=== PATIENT | female | born 2000 | race Caucasian/White ===

== ENCOUNTER 2022-04-26 23:36 | Emergency (ER) | payer BC ==
[~2022-04-26] VITALS: Ht 165.1 cm; Wt 65.8 kg
--- NOTE | 2022-04-27 00:51 | NUR ---
BIBSELF C/O RIGHT SIDE ABD PAIN RAD TO RIGHT FLANK, N/V X4 DAYS. PT A/OX4. TOLERATING R/A WELL WITH NO SOB; RESP EVEN AND NON LABORED. CONNECTED PT TO POX AND MONITOR. SAFETY MEASURES IN PLACE.
--- NOTE | 2022-04-27 00:54 | NUR ---
URINE COLLECTED AND SENT TO LAB
--- NOTE | 2022-04-27 01:00 | NUR ---
DR. DENIS ARITA AT PT'S BEDSIDE
[2022-04-27] MEDS ORDERED: MORPHINE SULFATE INJ 4 MG/ML DISP.SYRIN ONE (01:06)
[2022-04-27] MEDS ORDERED: ONDANSETRON HCL/PF 4 MG/2 ML VIAL ONE (01:06)
--- NOTE | 2022-04-27 01:22 | NUR ---
LAC #20G S/L BLOOD COLLECTED AND GIVEN TO LAB
--- NOTE | 2022-04-27 01:24 | NUR ---
PT TAKEN TO CT VIA ADALBERTO
[2022-04-27] MEDS ORDERED: MORPHINE SULFATE INJ 2 MG/ML DISP.SYRIN IV ONE (01:30)
[2022-04-27] MEDS ORDERED: IV NS 0.9% 500 ML BAG IV ONE (01:30)
[2022-04-27] MEDS ORDERED: KETOROLAC TROMETHAMINE INJ 30 MG/ML VIAL IV ONE (01:30)
[2022-04-27] MEDS ORDERED: ONDANSETRON HCL/PF 4 MG/2 ML VIAL IVP ONE (01:30)
[2022-04-27 01:31] LABS: BASOPHILS % (AUTO) 0.4 % (0.0-2.0); EOSINOPHILS % (AUTO) 0.8 % (0.0-6.0); HEMATOCRIT 40 % (33-45); HEMOGLOBIN 13.6 g/dL (11.5-14.8); LYMPHOCYTES # (AUTO) 2.3 K/uL (0.8-4.8); LYMPHOCYTES % (AUTO) 30.2 % (20.0-44.0); MEAN CORPUSCULAR HGB CONC 34 g/dl (31.0-36.0); MEAN CORPUSCULAR VOLUME 87 fL (82-100); MONOCYTES # (AUTO) 0.5 K/uL (0.1-1.30); MONOCYTES % (AUTO) 7.1 % (2.0-12.0); NEUTROPHILS # (AUTO) 4.8 K/uL (1.8-8.9); NEUTROPHILS % (AUTO) 61.5 % (43.0-81.0); PLATELET COUNT (AUTO) 232 K/uL (150-450); RED BLOOD CELL COUNT(AUTO) 4.65 MIL/uL (4.0-5.2); WHITE BLOOD COUNT (AUTO) 7.7 K/uL (4.3-11.0)
[2022-04-27] MEDS ORDERED: KETOROLAC TROMETHAMINE INJ 30 MG/ML VIAL ONE (01:32)
--- NOTE | 2022-04-27 01:33 | NUR ---
PT RETURNED TO ER BED [address]
[2022-04-27 01:41] LABS: CALCIUM, SERUM 9.1 mg/dL (8.5-10.1); CREATININE 0.7 mg/dL (0.6-1.3); POTASSIUM 3.8 mmol/L (3.5-5.1)
[2022-04-27 01:48] LABS: ALBUMIN 4.5 g/dL (3.4-5.0); BILIRUBIN,DIRECT 0.2 mg/dL (0.0-0.2); BILIRUBIN,TOTAL 0.7 mg/dL (0.2-1.0); TOTAL PROTEIN, SERUM 7.7 g/dL (6.4-8.2)
[2022-04-27 01:50] LABS: BILIRUBIN,URINE NEGATIVE (NEGATIVE); LEUKOCYTE ESTERASE ,URINE NEGATIVE (NEGATIVE); NITRITE, URINE NEGATIVE (NEGATIVE); PH,URINE 6.5 (5.0-8.0); PROTEIN,URINE NEGATIVE (NEGATIVE); UGLUCOSE NEGATIVE (NEGATIVE); UROBILINOGEN,URINE 0.2 EU/dL (0.2)
[2022-04-27 01:52] LABS: COLOR,URINE LIGHT YELLOW (YELLOW)
--- NOTE | 2022-04-27 01:55 | NUR ---
PT AMBULATORY TO RESTROOM WITH STEADY GAIT UNDER SUPERVISION. ADLS DONE
--- NOTE | 2022-04-27 02:00 | NUR ---
COVID ANTIGEN SWAB COLLECTED AND SENT TO LAB
[2022-04-27] MEDS ORDERED: ONDA4TAB5 PO (03:23)
[2022-04-27] MEDS ORDERED: IBUP-1957 PO (03:23)
--- NOTE | 2022-04-27 03:34 | NUR ---
Patient discharged to home in stable condition. RX Written and verbal after care instructions given. Patient verbalizes understanding of instruction. pt ambulatory with a steady gait. IV removed. Catheter intact and site benign. Pressure and 4x4 applied to site. No bleeding noted.
[2022-04-27 03:46] VITALS: BP 112/75
== END 2022-04-27 03:46 | disposition home or self-care (01) ==
LOC: ER 23:44
DX: N13.2 Hydronephrosis with renal and ureteral calculous obstruction (principal); K59.00 Constipation, unspecified; Z88.1 Allergy status to other antibiotic agents; Z88.2 Allergy status to sulfonamides
CPT/HCPCS: 99284; 74176; 96374; 96375; 87426; 85025; 80048; 83690; 80076; 84703; 81003; 36415; 85730; J1885; J2405; J7040; C9803; J2270